=== PATIENT | male | born 1970 | race Caucasian/White ===

== ENCOUNTER 2016-11-18 06:22 | Emergency (ER) | payer OTHER ==
[~2016-11-18] VITALS: Ht 167.6 cm; Wt 60.0 kg
[2016-11-18 06:27] VITALS: BP 112/83
== END 2016-11-18 07:58 | disposition home or self-care (01) ==
LOC: ED 07:46
DX: G89.29 Other chronic pain (principal); M25.551 Pain in right hip; F10.10 Alcohol abuse, uncomplicated; Z96.641 Presence of right artificial hip joint
CPT/HCPCS: 99283

== ENCOUNTER 2016-11-22 11:34 | Emergency (ER) | payer SELFPAY ==
[~2016-11-22] VITALS: Ht 172.7 cm; Wt 60.0 kg
[2016-11-22] MEDS ORDERED: SODIUM CHLORIDE FLUSH 10ML SYR IVF ONE (13:00)
[2016-11-22] MEDS ORDERED: ONDANSETRON 2MG/ML, 2ML IVPush ONE (13:00)
[2016-11-22] MEDS ORDERED: HYDROmorphone 1 MG/ML, 1ML IVPush PRN (13:00)
[2016-11-22 13:14] LABS: HEMATOCRIT 40.7 % (39.2-51.8); HEMOGLOBIN 13.9 g/dL (13.7-18.0); WHITE BLOOD COUNT 6.8 x10^3/uL (3.4-10)
[2016-11-22 13:24] LABS: ASPARTATE AMINO TRANSFERASE 42 U/L (15-37); BLOOD UREA NITROGEN 14 mg/dL (7-18)
[2016-11-22] MEDS ORDERED: ACETAMINOPHEN 325 MG TABLET ONE (13:29)
[2016-11-22] MEDS ORDERED: ACETAMINOPHEN 325 MG TABLET PO ONE (13:30)
[2016-11-22 13:32] VITALS: BP 123/81
== END 2016-11-22 14:33 | disposition home or self-care (01) ==
LOC: ED 14:24
DX: G89.29 Other chronic pain (principal); M25.551 Pain in right hip; M25.562 Pain in left knee; M25.561 Pain in right knee; M91.11 Juvenile osteochondrosis of head of femur [Legg-Calve-Perthes], right leg
CPT/HCPCS: 36415; 80053; 80307; 85025; 85610; 85730; 99285

== ENCOUNTER 2016-11-24 07:15 | Emergency (ER) | payer SELFPAY ==
[~2016-11-24] VITALS: Ht 165.1 cm; Wt 59.7 kg
[2016-11-24 07:16] VITALS: BP 133/81
== END 2016-11-24 08:21 | disposition home or self-care (01) ==
LOC: ED 08:15
DX: M25.551 Pain in right hip (principal); M25.561 Pain in right knee; F17.200 Nicotine dependence, unspecified, uncomplicated; Z96.641 Presence of right artificial hip joint
CPT/HCPCS: 99283; J7512

== ENCOUNTER 2016-11-25 00:28 | Emergency (ER) | payer OTHER ==
[~2016-11-25] VITALS: Ht 167.6 cm; Wt 59.2 kg
[2016-11-25 00:30] VITALS: BP 113/78
== END 2016-11-25 02:32 | disposition home or self-care (01) ==
LOC: ED 01:41
DX: G89.29 Other chronic pain (principal); M25.551 Pain in right hip; Z59.0 Homelessness; Z96.641 Presence of right artificial hip joint
CPT/HCPCS: 99282

== ENCOUNTER 2016-11-26 21:34 | Emergency (ER) | payer OTHER ==
[~2016-11-26] VITALS: Ht 167.6 cm; Wt 63.3 kg
[2016-11-26 21:39] VITALS: BP 107/75
[2016-11-26] MEDS ORDERED: IBUPROFEN 200 MG TABLET PO ONE (22:30)
[2016-11-26] MEDS ORDERED: ACETAMINOPHEN 500 MG TABLET PO ONE (22:30)
[2016-11-26] MEDS ORDERED: ACETAMINOPHEN 500 MG TABLET ONE (22:37)
[2016-11-26] MEDS ORDERED: IBUPROFEN 200 MG TABLET ONE (22:37)
== END 2016-11-26 23:15 | disposition left against medical advice (07) ==
LOC: ED 23:09
DX: M25.551 Pain in right hip (principal); M79.651 Pain in right thigh; M25.561 Pain in right knee; Z96.641 Presence of right artificial hip joint
CPT/HCPCS: 99281

== ENCOUNTER 2016-12-15 03:01 | Emergency (ER) | payer MEDICAID ==
[2016-12-15 03:02] VITALS: BP 164/98
== END 2016-12-15 03:29 | disposition home or self-care (01) ==
LOC: ED 03:23
DX: F41.1 Generalized anxiety disorder (principal); R51 Headache; G89.29 Other chronic pain; M25.579 Pain in unspecified ankle and joints of unspecified foot; F10.229 Alcohol dependence with intoxication, unspecified; Z59.0 Homelessness; Z96.641 Presence of right artificial hip joint
CPT/HCPCS: 99284

== ENCOUNTER 2016-12-22 22:19 | Emergency (ER) | payer MEDICAID ==
[~2016-12-22] VITALS: Ht 165.1 cm; Wt 61.7 kg
[2016-12-22 22:20] VITALS: BP 129/89
== END 2016-12-22 23:07 | disposition left against medical advice (07) ==
LOC: ED 22:32
DX: G89.29 Other chronic pain (principal); M25.551 Pain in right hip; Z96.641 Presence of right artificial hip joint
CPT/HCPCS: 99281

== ENCOUNTER 2017-04-23 14:15 | Emergency (ER) | payer SELFPAY ==
[~2017-04-23] VITALS: Ht 167.6 cm; Wt 67.1 kg
[2017-04-23 14:44] VITALS: BP 116/61
== END 2017-04-23 15:52 | disposition home or self-care (01) ==
LOC: ED 15:40
DX: F12.922 Cannabis use, unspecified with intoxication with perceptual disturbance (principal); F15.10 Other stimulant abuse, uncomplicated; F10.229 Alcohol dependence with intoxication, unspecified; Z00.00 Encounter for general adult medical examination without abnormal findings; F41.9 Anxiety disorder, unspecified; Z59.0 Homelessness
CPT/HCPCS: 99281

== ENCOUNTER 2017-04-27 14:49 | Observation (INO) | payer OTHER ==
[~2017-04-27] VITALS: Ht 167.6 cm; Wt 60.2 kg
[2017-04-27] MEDS ORDERED: ZIPRASIDONE 20 MG INJ IM ONE ×2 (14:53→15:00)
[2017-04-27] MEDS ORDERED: LORazepam 2 MG/ML, 1ML ONE (14:56)
[2017-04-27] MEDS ORDERED: LORazepam 2 MG/ML, 1ML IM ONE (15:00)
[2017-04-27] MEDS ORDERED: PLEASE ENTER HEIGHT AND WEIGHT MC SCH (15:30)
[2017-04-27 15:59] LABS: BASOPHILS # (AUTO) 0.05 x10^3/uL (0-0.1); BASOPHILS % (AUTO) 1 % (0-1); EOSINOPHILS # (AUTO) 0.32 x10^3/uL (0-0.4); EOSINOPHILS % (AUTO) 4 % (1-7); LYMPHOCYTES # (AUTO) 2.25 x10^3/uL (1-3.4); LYMPHOCYTES % (AUTO) 25 % (22-44); MD NO; MEAN CORPUSCULAR HEMOGLOBIN 31.7 pg (27.5-34.5); MEAN CORPUSCULAR HGB CONC 33.7 g/dL (33.2-36.2); MEAN CORPUSCULAR VOLUME 94.1 fL (81-97); MONOCYTES # (AUTO) 1.33 x10^3/uL (0.2-0.8); MONOCYTES % (AUTO) 15 % (2-9); NEUTROPHILS # (AUTO) 5.02 x10^3/uL (1.8-6.8); NEUTROPHILS % (AUTO) 56 % (42-75); PLATELET COUNT 304 x10^3/uL (130-400); RED BLOOD COUNT 4.13 x10^6/uL (4.38-5.82); RED CELL DISTRIBUTION WIDTH 15.3 % (9.4-14.8)
[2017-04-27 16:08] LABS: ALBUMIN 2.7 g/dL (3.4-5.0); ANION GAP 10 mmol/L (5-15); CALCIUM 8.2 mg/dL (8.5-10.1); CHLORIDE 102 mmol/L (98-107); CREATININE 0.52 mg/dL (0.7-1.3)
[2017-04-27 16:14] LABS: ACETAMINOPHEN < 2 mcg/mL (10-30)
[2017-04-27] MEDS ORDERED: POTASSIUM CHLORIDE 20 MEQ TAB.ER.PRT PO ONE (17:30)
[2017-04-27] MEDS ORDERED: LORazepam 2 MG/ML, 1ML IM PRN (17:30)
[2017-04-27] MEDS ORDERED: ACETAMINOPHEN 325 MG TABLET PO PRN (18:00)
[2017-04-27] MEDS ORDERED: DOCUSATE 100 MG CAPSULE PO PRN (18:00)
[2017-04-27] MEDS ORDERED: ENOXAPARIN 40 MG/0.4 ML SQ SCH (18:00)
[2017-04-27 21:06] LABS: AMPHETAMINE SCREEN, URINE Negative (Negative); BARBITURATE SCREEN, URINE Negative (Negative); BENZODIAZEPINE SCREEN, URINE Negative (Negative); CANNABINOID SCREEN, URINE Positive (Negative); COCAINE SCREEN, URINE Negative (Negative); METHADONE SCREEN, URINE Negative (Negative); OPIATE SCREEN, URINE Negative (Negative)
[2017-04-28 01:06] VITALS: BP 92/52
[2017-04-28 05:32] LABS: BASOPHILS # (AUTO) 0.09 x10^3/uL (0-0.1); BASOPHILS % (AUTO) 1 % (0-1); EOSINOPHILS # (AUTO) 0.16 x10^3/uL (0-0.4); EOSINOPHILS % (AUTO) 2 % (1-7); LYMPHOCYTES # (AUTO) 1.85 x10^3/uL (1-3.4); LYMPHOCYTES % (AUTO) 23 % (22-44); MD NO; MEAN CORPUSCULAR HEMOGLOBIN 31.5 pg (27.5-34.5); MEAN CORPUSCULAR HGB CONC 33.4 g/dL (33.2-36.2); MEAN CORPUSCULAR VOLUME 94.4 fL (81-97); MONOCYTES # (AUTO) 1.16 x10^3/uL (0.2-0.8); MONOCYTES % (AUTO) 15 % (2-9); NEUTROPHILS # (AUTO) 4.72 x10^3/uL (1.8-6.8); NEUTROPHILS % (AUTO) 59 % (42-75); PLATELET COUNT 326 x10^3/uL (130-400); RED BLOOD COUNT 4.31 x10^6/uL (4.38-5.82); RED CELL DISTRIBUTION WIDTH 15.3 % (9.4-14.8)
[2017-04-28 05:40] LABS: ANION GAP 8 mmol/L (5-15); CALCIUM 8.1 mg/dL (8.5-10.1); CHLORIDE 108 mmol/L (98-107)
[2017-04-28 05:41] LABS: CREATININE 0.46 mg/dL (0.7-1.3)
[2017-04-28] MEDS ORDERED: FOLIC ACID 1 MG TABLET PO SCH (09:00)
[2017-04-28] MEDS ORDERED: THIAMINE 100MG TABLET PO SCH (09:00)
[2017-04-28] MEDS ORDERED: MULTIVITAMINS WITH IRON TABLET PO SCH (09:00)
== END 2017-04-28 08:45 | disposition home or self-care (01) ==
LOC: ED 16:14 → EDIP 17:04
PROVIDERS: ADMIT Internal Medicine; ATTEND Hospitalist
DX: F23 Brief psychotic disorder (principal); R45.1 Restlessness and agitation; E87.6 Hypokalemia; I25.9 Chronic ischemic heart disease, unspecified; E44.0 Moderate protein-calorie malnutrition; E87.1 Hypo-osmolality and hyponatremia; G89.29 Other chronic pain; F17.210 Nicotine dependence, cigarettes, uncomplicated; Z72.89 Other problems related to lifestyle
CPT/HCPCS: 36415; 80048; 80307; 80329; 82040; 83735; 85025; 96372; 99285; G0378; J2060; J3486; G0480

== ENCOUNTER 2017-04-30 01:16 | Emergency (ER) | payer SELFPAY ==
[~2017-04-30] VITALS: Ht 165.1 cm; Wt 53.5 kg
[2017-04-30 01:19] VITALS: BP 108/73
== END 2017-04-30 02:38 | disposition left against medical advice (07) ==
LOC: ED 02:32
DX: M79.662 Pain in left lower leg (principal); M79.661 Pain in right lower leg
CPT/HCPCS: 99281